=== PATIENT | male | born 1975 ===

== ENCOUNTER 2018-05-20 11:29 | Outpatient (CLI) | payer SELFPAY | END 2018-05-20 11:30 | disposition home or self-care (01) | LOC: C.USIC 11:29 ==

== ENCOUNTER 2018-07-22 12:33 | Emergency (ER) | payer OTHER ==
[2018-07-22 12:50] VITALS: BMI 29.0
[2018-07-22 12:52] VITALS: BP 145/78; PULSE 81; TEMP 98.1; O2SAT 98
[2018-07-22] MEDS ORDERED: Lidocaine 1% Inj (20ml) INFIL STA (12:56)
--- NOTE | 2018-07-22 13:00 | C.PDOC ---
History Of Present Illness POSSIBLE RETAINED FB L 4 FINGER X 1 WEEK. WOODEN SPLINTER PS ATTEMPTED REMOVAL BUT ONLY PARTIAL. STILL W PERSIST FB SENSATION. INCR REDNESS, AND SWELLING. NO DC. NO OTHER ASSOC SX OR INJURY EXAM NONTOXIC EXT L HAND +SWELLING ERYTHEMA FOCAL RADIAL ASPECT PROX PHALANX L 4 FINGER. AROM WO DIFF. NO DC NEURO INTACT REMAINDER NEG MDM FINGER RED RO RETAINED FB. XRAY, EXPLORATION, ABX. PT ADVISED POSSIBLE NEED HAND SURG EVAL IF UNSUCCESSFUL ATTEMPT AT REMOVAL Time Seen by Provider: 07/22/18 12:56 Chief Complaint (Nursing): Abnormal Skin Integrity History Per: Patient History/Exam Limitations: no limitations Onset/Duration Of Symptoms: Days Current Symptoms Are (Timing): Still Present Severity: Moderate Past Medical History Reviewed: Historical Data, Nursing Documentation, Vital Signs Vital Signs: Last Vital Signs Temp 98.1 F 07/22/18 12:50 Pulse 81 07/22/18 12:50 Resp 18 07/22/18 12:50 BP 145/78 07/22/18 12:50 Pulse Ox 98 07/22/18 12:50 Primary Care Provider: Tara Brown Medical History PMH: No Chronic Diseases Surgical History: No Surg Hx Family History: States: No Known Family Hx - Social History Hx Alcohol Use: No Hx Substance Use: No Review Of Systems Except As Marked, All Systems Reviewed And Found Negative. Constitutional: Negative for: Fever, Chills Musculoskeletal: Positive for: Other (possible retained foreign body to left 4th finger, associated swelling and redness) Neurological: Negative for: Weakness, Numbness Physical Exam - Physical Exam Appears: Non-toxic Skin: Normal Color, Warm, Dry, Other (no discharge from left 4th finger) Head: Atraumatic, Normacephalic Eye(s): bilateral: Normal Inspection Extremity: Normal ROM (AROM without difficulty in left 4th finger), Other (left hand: swelling erythema focal radial aspect proximal phalanx left 4th finger) Neurological/Psych: Oriented x3, Normal Speech, Normal Motor, Normal Sensation ED Course And Treatment O2 Sat by Pulse Oximetry: 98 (RA) Pulse Ox Interpretation: Normal - Other Rad X-Ray-Left Hand 4th Digit X-Ray: Viewed By Me, Read By Radiologist Interpretation: Date of service: 07/22/2018. PROCEDURE: Left ring finger radiographs. HISTORY: FOREIGN BODY. COMPARISON: None available. TECHNIQUE: AP radiograph of the left hand, as well as spot oblique and lateral images of index finger were obtained. 4 views obtained. FINDINGS: LEFT RING FINGER: Left 4th digit appears intact without acute displaced fracture identified focal lesion. Remainder of the left hand (as seen on the AP view) is grossly unremarkable. JOINTS: No dislocation. SOFT TISSUES: Soft tissue swelling. Punctate 1 mm radiopaque density noted within the soft tissues at the level of the 4th PIP laterally. OTHER FINDINGS: None. IMPRESSION: Soft tissue swelling. Punctate 1 mm radiopaque density noted within the soft tissues at the level of the 4th PIP laterally. 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 ABX, OFFICE FU 07/22/18 13:58 - Data Reviewed Data Reviewed: Diagnostic imaging Medical Decision Making Medical Decision Making: Plan: --Motrin PO --Tylenol PO --X-Ray-Left 4th Digit FINGER RED RO RETAINED FB. XRAY, EXPLORATION, ABX. PT ADVISED POSSIBLE NEED HAND SURG EVAL IF UNSUCCESSFUL ATTEMPT AT REMOVAL Disposition Counseled Patient/Family Regarding: Studies Performed, Diagnosis, Need For Followup, Rx Given - Disposition Referrals: [facility] [Outside] [facility] [Outside] Adam Gaona MD [Staff Provider] - Disposition: HOME/ ROUTINE Disposition Time: 13:56 Condition: GOOD Prescriptions: Cephalexin [cephalexin] 500 mg PO BID #14 cap Ibuprofen [Motrin Tab] 800 mg PO Q6 #30 tab Instructions: Foreign Body in Skin (DC) Forms: [facility] (Yoruba), Work Excuse - Clinical Impression Clinical Impression: Soft tissues foreign body - Scribe Statement The provider has reviewed the documentation as recorded by the Scribe Kaila Gaffney Provider Attestation: All medical record entries made by the Scribe were at my direction and personally dictated by me. I have reviewed the chart and agree that the record accurately reflects my personal performance of the history, physical exam, medical decision making, and the department course for this patient. I have also personally directed, reviewed, and agree with the discharge instructions and disposition. PROCEDURES - Foreign Body Removal Consent Obtained: verbal consent Time Out Performed: Yes Site: left, other (4 FINGER) Description of foreign body: other (WOODEN SPLINTER) Sedation/Analgesia: none Technique: removal with forceps (NO VISUALIZED REMOVAL DURING EXPLORATION), incision made to facilitate removal (INCISION OVER AREA OF FB SENSATION) Complications:: Bleeding (+SCANT PURULENT DC) Post-procedure exam: Awake, alert, Normal BP, Normal HR, Normal O2 sat Neurovascular: Normal distal pulse, Normal capillary, No change from pre- procedure, Other
[2018-07-22] MEDS ORDERED: Tetanus/Diphtheria Toxoids 0.5 ml Syringe IM ONE ×2 (13:04→13:15)
[2018-07-22] MEDS ORDERED: Lidocaine Hydrochloride 10 ML INJ ONE (13:14)
--- NOTE | 2018-07-22 13:21 | RAD ---
Date of service: 07/22/2018 PROCEDURE: Left ring finger radiographs. HISTORY: FOREIGN BODY COMPARISON: None available. TECHNIQUE: AP radiograph of the left hand, as well as spot oblique and lateral images of index finger were obtained. 4 views obtained. FINDINGS: LEFT RING FINGER: Left 4th digit appears intact without acute displaced fracture identified focal lesion. Remainder of the left hand (as seen on the AP view) is grossly unremarkable. JOINTS: No dislocation. SOFT TISSUES: Soft tissue swelling. Punctate 1 mm radiopaque density noted within the soft tissues at the level of the 4th PIP laterally. OTHER FINDINGS: None. IMPRESSION: Soft tissue swelling. Punctate 1 mm radiopaque density noted within the soft tissues at the level of the 4th PIP laterally.
--- NOTE | 2018-07-22 14:09 | RAD ---
Date of service: 07/22/2018 PROCEDURE: Left ring finger radiographs. HISTORY: FB REMOVAL ATTEMPT RO RETAINED FB COMPARISON: 07/22/2018 at 1:01 p.m. TECHNIQUE: AP radiograph of the left hand, as well as spot oblique and lateral images of index finger were obtained. 4 views obtained. FINDINGS: LEFT RING FINGER: There is no osseous fracture. There is a 1 mm radiopacity, possibly calcified, adjacent to the radial aspect of the distal end of the 4th proximal phalanx. This is unchanged in appearance compared to the earlier examination. Remainder of the left hand (as seen on the AP view) is grossly unremarkable. JOINTS: Normal. SOFT TISSUES: Soft tissue swelling along the radial aspect of the 4th PIP. OTHER FINDINGS: None. IMPRESSION: No change from earlier examination. Tiny radiopaque density, possibly foreign body, in soft tissues along the radial aspect of the distal end, 4th proximal phalanx.
[2018-07-22 14:30] VITALS: RESP 20
== END 2018-07-22 14:29 | disposition home or self-care (01) ==
LOC: C.ER 12:33
DX: S60.455A Superficial foreign body of left ring finger, initial encounter (principal); W45.8XXA Other foreign body or object entering through skin, initial encounter; Z23 Encounter for immunization